=== PATIENT | male | born 1995 | race Caucasian/White ===

== ENCOUNTER 2023-01-12 09:53 | Emergency (ER) | payer SELFPAY ==
[2023-01-12] MEDS ORDERED: Ibuprofen 800 MG TAB ONE (10:17)
== END 2023-01-12 10:49 | disposition home or self-care (01) ==
LOC: CSHERS 09:53
DX: S93.401A Sprain of unspecified ligament of right ankle, initial encounter (principal); X58.XXXA Exposure to other specified factors, initial encounter
CPT/HCPCS: 29540